=== PATIENT | female | born 1990 | race Caucasian/White ===

== ENCOUNTER 2016-11-25 09:35 | Emergency (ER) | payer OTHER ==
[~2016-11-25] VITALS: Ht 157.5 cm; Wt 62.5 kg
[~2016-11-25 09:35] MED LIST: CIPRO500 MG PO; FERROUS SULFAT324 M1 PO; RIFAMPIN300 MG PO
[2016-11-25 11:00] VITALS: BP 138/89
== END 2016-11-25 11:29 | disposition home or self-care (01) ==
LOC: EME 09:35
DX: F10.10 Alcohol abuse, uncomplicated (principal); M54.2 Cervicalgia; R20.0 Anesthesia of skin; Z73.3 Stress, not elsewhere classified; F17.200 Nicotine dependence, unspecified, uncomplicated
CPT/HCPCS: 90832; 99281; 99283

== ENCOUNTER 2017-11-18 10:55 | Emergency (ER) | payer OTHER ==
[~2017-11-18] VITALS: Ht 157.5 cm; Wt 63.0 kg
[2017-11-18 11:18] VITALS: BP 140/98
[2017-11-18 12:01] LABS: HEMATOCRIT 44.6 % (36.0-46.0); HEMOGLOBIN 15.5 G/DL (11.9-15.5); MCH 31.6 PG (29.0-34.0); MCHC 34.8 G/DL (30.0-36.0); MCV 90.8 FL (83-99); PLATELET COUNT 410 K/uL (156-360); RBC DIS.WIDTH-CV 11.7 % (11.8-14.6); RBC DIS.WIDTH-SD 39.1 % (39-53); RED BLOOD COUNT 4.91 M/uL (3.80-5.20); WHITE BLOOD COUNT 10.6 K/uL (4.1-10.2)
[2017-11-18 12:12] LABS: ALBUMIN 5.1 g/dL (3.2-4.8); CHLORIDE 102 mEq/L (99-109); POTASSIUM 4.4 mEq/L (3.7-5.4); SODIUM 140 mEq/L (136-147)
[2017-11-18 12:15] LABS: GLUCOSE 85 mg/dL (70-99); TOTAL PROTEIN 8.9 g/dL (6.4-8.3)
[2017-11-18 12:16] LABS: TOTAL BILIRUBIN 0.5 mg/dL (0.0-1.0)
[2017-11-18 12:18] LABS: ALKALINE PHOSPHATASE 87 IU/L (3-129); CREATININE 0.8 mg/dL (0.6-1.3); GFR ESTIMATE (CALCULATED) > 59 mL/min/
[2017-11-18 12:19] LABS: UREA NITROGEN (BUN) 13 mg/dL (9-23)
[2017-11-18 12:20] LABS: AST (GOT) 58 IU/L (2-34)
[2017-11-18 12:21] LABS: ALT (GPT) 145 IU/L (3-49)
[2017-11-18 12:27] LABS: QUANTITATIVE HCG < 4.0 MIU/ML
[2017-11-18 12:38] LABS: APPEARANCE CLEAR ((CLEAR)); BILIRUBIN NEGATIVE; BLOOD NEGATIVE; COLOR YELLOW ((YELLOW)); GLUCOSE (STRIP) NEGATIVE; KETONES NEGATIVE; LEUKOCYTES TRACE; NITRITE NEGATIVE; PROTEIN (STRIP) NEGATIVE; SPECIFIC GRAVITY 1.009 (1.000-1.030); UROBILINOGEN 0.2 MG/DL (0.2-1.0)
[2017-11-18 12:43] LABS: BACTERIA RARE /HPF; EPITHELIAL CELLS 1+ /HPF; MUCUS TRACE /LPF; RED BLOOD CELLS 0-5 /HPF (0-5); UCUL ADDED? NO; WHITE BLOOD CELLS 0-5 /HPF (0-5)
== END 2017-11-18 13:10 | disposition home or self-care (01) ==
LOC: EME 10:55
DX: K59.00 Constipation, unspecified (principal); F41.9 Anxiety disorder, unspecified; Z87.891 Personal history of nicotine dependence
CPT/HCPCS: 80053; 81003; 84702; 85027; 99281; 99283